=== PATIENT | male | born 1940 | race Caucasian/White ===

== ENCOUNTER → 2016-07-25 | Outpatient (CLI) | payer OTHER ==
[2016-07-25 14:47] LABS: BILIRUBIN,URINE NEGATIVE (NEG); CLARITY,URINE CLEAR (CLEAR); GLUCOSE, URINE (UA) NEGATIVE (NEG); LEUKOCYTE ESTERASE ,URINE NEGATIVE (NEG); NITRATE,URINE NEGATIVE (NEG); OCCULT BLOOD,URINE NEGATIVE (NEG); PH,URINE 7.5 (5.0-8.5); PROTEIN,URINE NEGATIVE (NEG)
[2016-07-25 14:49] LABS: BASOPHILS # (AUTO) 0.03 10*3/UL; BASOPHILS % (AUTO) 0.6 % (0-1); EOSINOPHILS % (AUTO) 0.8 % (0-8); HEMATOCRIT 43.9 % (42.0-52.0); HEMOGLOBIN 15.1 g/dL (14.0-18.0); IMM GRAN % (AUTO) 0.2 % (0-5); IMM GRAN# (AUTO) 0.01 10*3/UL; LYMPHOCYTES # (AUTO) 1.35 10*3/uL; LYMPHOCYTES % (AUTO) 25.4 % (10-50); MEAN CORPUSCULAR HEMOGLOBIN 31.9 PG (27-31); MEAN CORPUSCULAR HGB CONC 34.4 g/dL (33-37); MEAN PLATELET VOLUME 8.5 FL (7.4-12.2); MONOCYTES # (AUTO) 0.61 10*3/UL (0.3-0.8); MONOCYTES % (AUTO) 11.5 % (5-15); NEUTROPHILS # (AUTO) 3.28 10*3/UL; NEUTROPHILS % (AUTO) 61.5 % (50-80); RDW COEFFICIENT OF VARIATION 13.6 % (11.5-14.5); RED BLOOD COUNT 4.73 10^6/uL (4.70-6.10); WHITE BLOOD COUNT 5.32 10^3/uL (4.8-10.8)
[2016-07-25 14:50] LABS: PLATELET MORPHOLOGY COMMENT NORMAL MORPHOLOGY (NORM); URINE SAMPLE TYPE CLEAN CATCH URINE
[2016-07-25 14:54] LABS: BILIRUBIN,TOTAL 0.6 mg/dL (0.3-1.2); BUN/CREATININE RATIO 16.25 (6-20); CALCIUM 9.2 mg/dL (8.7-10.7); CREATININE 0.8 mg/dL (0.70-1.50); LDL CHOLESTEROL,CALCULATED 99.6 mg/dL
[2016-07-25 14:59] LABS: RBC,URINE 0-1 /hpf; WBC,URINE 0-1
[2016-07-25 15:29] LABS: ERYTHROCYTE SEDIMENTATION RATE 2 MM/HR (0-15)
== END ==
LOC: MOB LAB 11:49
PROVIDERS: ATTEND Internal Medicine
DX: K59.04 Chronic idiopathic constipation (principal); R12 Heartburn; N40.1 Benign prostatic hyperplasia with lower urinary tract symptoms; R35.1 Nocturia; M19.041 Primary osteoarthritis, right hand; R60.0 Localized edema
CPT/HCPCS: 36415; 80053; 80061; 81001; 84443; 85025; 85652

== ENCOUNTER 2017-03-17 09:27 | Inpatient (IN) ==
[2017-03-17] MEDS ORDERED: NORMAL SALINE 10 ML SYRINGE FLUSH IVP PRN ×3 (09:31→17:42)
[2017-03-17] MEDS ORDERED: Lactated Ringers 1,000 ML PRIMARY IV SCH (09:45)
[2017-03-17] MEDS ORDERED: ceFAZolin Inj 2gm (Premix) 2 GM/50 ML BAG IV SCH ×2 (09:45→17:42)
--- NOTE | 2017-03-17 11:13 | PDOC ---
HPI - History of Present Illness History of Present Illness: Is a very nice 76-year-old gentleman who was a direct admit admit from [facility] by Dr. Vasquez hospitalist service was asked to admit. Apparently the patient was mowing the lawn at [facility] and I get out of his truck to hookup the trailer's pulled the cord slipped backwards and fell sustaining a hip fracture right minimally displaced right femoral neck fracture. Which Dr. Vasquez is going to be bringing to the ER this afternoon. Patient is able to stand and is in no pain surprisingly. Denies chest pain nausea vomiting Past Medical History Medical History: Patient has a history of seizure disorder on Dilantin he has no history of coronary artery disease he states Tobacco Use: Never Smoker In the Past 12 Months, Have Used or Abuse Any of the Following Substance: None Alcohol Use: None Medication / Allergies Home Medications: Home Medications Medication Instructions Recorded Confirmed Type Phenytoin Sodium Extended 2 tab-cap PO BID #360 tab-cap 07/25/16 Rx tramadol 50 mg tablet 50 mg PO Q6H PRN tab 03/17/17 03/17/17 History Allergies/Adverse Reactions: Allergies 3 Allergy/AdvReac Type Severity Reaction Status Date / Time No Known Allergies Allergy Unverified 07/25/16 09:39 Review of Systems - Review of Systems All Systems: Reviewed & No Additional Complaints Except as Stated - Eye Exam Eye Exam: DENIES: Negative System Review, Acuity Good, Acuity Fair, Acuity Poor , Glasses/Contacts, Vision Loss, Blurring, Redness, Diplopia, Catarats, Other, See HPI - Respiratory Respiratory: DENIES: Negative System Review, Cough, Sputum, Dyspnea At Rest, Dyspnea with Exertion, Pleuritic Pain, Hemoptysis, Wheezing, Other, See HPI - Cardiovascular Cardiovascular: DENIES: Negative System Review, Chest Pain, Edema, Syncope, Palpitations, Orthopnea, Paroxysmal Nocturnal Dyspnea, Other, See HPI - Gastrointestinal Gastrointestinal / Abdominal: DENIES: Negative System Review, Nausea, Vomiting, Diarrhea, Constipation, Abdominal Pain, Bloody Stool, Poor Appetite, Heartburn, Regurgitation, Bloating, Lactose Intolerance, Melena, Bright Red Blood per Rectum, Other, See HPI - Genitourinary Genitourinary: DENIES: Negative System Review, Pain, Burning, Hematuria, Incontinence, Urgency, Hesitant Stream, Decreased Stream, Nocutria, Discharge, Sexual Dysfunction, Other, See HPI Exam - Vitals Vital Signs: Vital Signs Temperature 98.7 F Temperature Source Oral Pulse Rate [Pulse Oximeter] 69 Respiratory Rate 20 Blood Pressure [Right Arm] 130/64 Pulse Ox 98 Oxygen Delivery Method Room Air Height 5 ft 9 in Weight 142 lb 12.8 oz - General General Appearance: No Acute Distress, Cooperative - Head Head Exam: Normal Inspection, Normocephalic, Atraumatic - Eye Eye Exam: POSITIVE: Normal Appearance, PERRL, EOMI - Respiratory Respiratory Exam: POSITIVE: Clear to Auscultation - Bilaterally, Breathing Non Labored, Normal To Percussion - Cardiovascular Cardiovascular Exam: POSITIVE: RRR, No Murmur, No Clicks, No Gallops - GI/Abdominal GI/Abdominal Exam: POSITIVE: Normal Bowel Sounds, Non Tender, Non Distended, Soft - Extremities Extremities Exam: POSITIVE: No Clubbing Present, No Edema Present, No Cyanosis Present - Neurological Neurological Exam: POSITIVE: Alert, Oriented x 3, CN II-XII Intact, No Facial Droop Assessment and Plan - Patient Problems (1) S/P right hip fracture Current Visit: Yes Status: Acute Comment: Dr. Vasquez will be taking the patient to our this afternoon Code(s): Z87.81 - Personal history of (healed) traumatic fracture (2) Seizure disorder Current Visit: Yes Status: Acute Comment: Continue usual home meds Code(s): G40.909 - Epilepsy, unspecified, not intractable, without status epilepticus
[2017-03-17 13:39] LABS: BASOPHILS # (AUTO) 0.03 10*3/UL; BASOPHILS % (AUTO) 0.4 % (0-1); EOSINOPHILS # (AUTO) 0.33 10*3/UL; EOSINOPHILS % (AUTO) 4.3 % (0-8); Hematocrit [HCT] 45.3 % (42.0-52.0); Hemoglobin [HGB] 15.8 g/dL (14.0-18.0); LYMPHOCYTES # (AUTO) 1.22 10*3/uL; MEAN CORPUSCULAR HEMOGLOBIN 32.6 PG (27-31); MEAN CORPUSCULAR HGB CONC 34.9 g/dL (33-37); MEAN CORPUSCULAR VOLUME 93.4 FL (80-90); MEAN PLATELET VOLUME 8.1 FL (7.4-12.2); MONOCYTES # (AUTO) 0.81 10*3/UL (0.3-0.8); MONOCYTES % (AUTO) 10.7 % (5-15); NEUTROPHILS # (AUTO) 5.19 10*3/UL; NEUTROPHILS % (AUTO) 68.2 % (50-80); RED BLOOD COUNT 4.85 10^6/uL (4.70-6.10)
[2017-03-17 13:42] LABS: PLATELET MORPHOLOGY COMMENT NORMAL MORPHOLOGY (NORM); RBC MORPHOLOGY COMMENT NORMAL MORPHOLOGY (NORM); WBC MORPHOLOGY COMMENT NORMAL MORPHOLOGY (NORM)
[2017-03-17 13:52] LABS: BLOOD UREA NITROGEN 22 mg/dL (7-22); SERUM ALBUMIN 4.3 g/dL (3.5-4.8)
[2017-03-17] MEDS ORDERED: BACITRACIN 50,000 UNIT VIAL IRRIG ONE (14:38)
[2017-03-17] MEDS ORDERED: Sodium Chloride 0.9% vial 20 ML ONE (14:38)
[2017-03-17] MEDS ORDERED: ceFAZolin Inj 2gm (Premix) 2 GM/50 ML BAG IV ONE (14:40)
[2017-03-17] MEDS ORDERED: BUPivacaine Liposome/PF (Exparel) Inj 20ml vial INFIL ONE (14:49)
[2017-03-17] MEDS ORDERED: PROPOFOL IV ONE (14:49)
[2017-03-17] MEDS ORDERED: Sodium Chloride 0.9% vial 10 ML ONE (14:49)
[2017-03-17] MEDS ORDERED: Bacteriostatic NaCl Inj 30ml Vial ONE (14:49)
[2017-03-17] MEDS ORDERED: MIDAZOLAM 5 MG/1 ML ONE (14:53)
[2017-03-17] MEDS ORDERED: fentaNYL Inj 100 MCG/2 ML VIAL ONE (14:53)
--- NOTE | 2017-03-17 15:46 | CRNA.PROCE ---
Central Neuraxis Block [facility] - - Safety Measures: Time Out Taken - - Type of Block: Subarachnoid Reason for Block: Surgical Moniters Used During Block: EKG, SPO2, NIBP Sedation Used - Enter Amount Used in Comment Field: Midazolam (mg): Yes (2mg), Fentanyl (mcg): Yes (50mcg) Skin Prep Used: ChloroPrep Draped: No Skin Infiltration - Enter Amount Used in Comment Field: 1% Xylocaine (mL): Yes ( skin wheal) Spinal Needle Used: 22 Melisa 80 mm Local Anesthetic - Enter Amount Used in Comment Field: 0.75 % Bupivacaine with Dextrose (ml): Yes (15mg) Additive Used - Enter Amount Used in Comment Field: Epinephrine 1:1000 Needle Rinse (mL): Yes (barrel wash) Anesthesia Time - Other Weight: 64.773 kg Height: 5 ft 9 in Body Mass Index (BMI): 21.0
[2017-03-17] MEDS ORDERED: HYDROmorphone 2 MG/1 ML IVP PRN ×2 (15:51→17:42)
[2017-03-17] MEDS ORDERED: ONDANSETRON 4 MG/2 ML VIAL IVP PRN ×2 (15:51→17:42)
[2017-03-17] MEDS ORDERED: fentaNYL Inj 100 MCG/2 ML VIAL IVP PRN (15:51)
[2017-03-17] MEDS ORDERED: LIDOCAINE HCL 2 % 10 ML JELLY URO-JECT TOPICAL ONE (16:54)
--- NOTE | 2017-03-17 17:26 | CRNA.PROGR ---
Anesthesia Time - - Start date: 03/17/17 End date: 03/17/17 - Procedure/Recovery Time Anesthesia : Time In: 15:10 Anesthesia : Time Out: 17:21 Anesthesia : Total Time: 131 - Total Anesthesia Time Total Anesthesia Time (minutes): 131 - Other Weight: 64.773 kg Height: 5 ft 9 in Body Mass Index (BMI): 21.0 Physical Status: P2 Anesthesia Type: Spinal Block (with sedation)
--- NOTE | 2017-03-17 17:35 | ORTHO.OP ---
- - -: See Dictated Operative Report (Patient had an office visit and was coded 93679 with decision to operate and CPT code 67569)
[2017-03-17] MEDS ORDERED: HYDROcodone-APAP 7.5 MG-325 MG TABLET PO PRN (17:42)
[2017-03-17] MEDS: Lactated Ringers 1,000 ML PRIMARY IV SCH (18:30)
[2017-03-17] MEDS: PHENYTOIN PO SCH (20:00)
[2017-03-17] MEDS: DOCUSATE 100 MG CAPSULE PO SCH (21:21)
[2017-03-18 05:10] LABS: BASOPHILS # (AUTO) 0.03 10*3/UL; BASOPHILS % (AUTO) 0.3 % (0-1); EOSINOPHILS # (AUTO) 0.18 10*3/UL; EOSINOPHILS % (AUTO) 1.7 % (0-8); LYMPHOCYTES # (AUTO) 1.21 10*3/uL; MEAN CORPUSCULAR HEMOGLOBIN 31.7 PG (27-31); MEAN CORPUSCULAR HGB CONC 34.1 g/dL (33-37); MEAN CORPUSCULAR VOLUME 92.8 FL (80-90); MEAN PLATELET VOLUME 8.6 FL (7.4-12.2); MONOCYTES # (AUTO) 1.31 10*3/UL (0.3-0.8); MONOCYTES % (AUTO) 12.3 % (5-15); NEUTROPHILS # (AUTO) 7.87 10*3/UL; RED BLOOD COUNT 4.42 10^6/uL (4.70-6.10)
[2017-03-18 05:18] LABS: BLOOD UREA NITROGEN 16 mg/dL (7-22); BUN/CREATININE RATIO 22.85 (6-20)
[2017-03-18 05:31] LABS: PLATELET MORPHOLOGY COMMENT NORMAL MORPHOLOGY (NORM); RBC MORPHOLOGY COMMENT NORMAL MORPHOLOGY (NORM); WBC MORPHOLOGY COMMENT NORMAL MORPHOLOGY (NORM)
[2017-03-18] MEDS: Lactated Ringers 1,000 ML PRIMARY IV SCH ×2 (05:44→17:23)
[2017-03-18] MEDS: Rivaroxaban Tab 10 MG TAB PO SCH (09:04)
[2017-03-18] MEDS: PHENYTOIN PO SCH ×2 (09:04→20:44)
[2017-03-18] MEDS: DOCUSATE 100 MG CAPSULE PO SCH ×2 (09:05→20:44)
--- NOTE | 2017-03-18 11:04 | CRNA.PROGR ---
Anesthesia Note - Progress Notes Anesthesia Progress Note: Post OP Anesthesia Note Pt is sitting up in bed AAO, has just returned from PT, he has been up several tomes to walk around the 3rd floor hallways. He denies any pain, and states that the SAB has completel worn off. He has been tolerating a regular diet and is able to get up to the restroom. Current VS are stable. Vital Signs - Last Taken Temperature 98.5 F 03/18/17 09:00 Pulse Rate 81 03/18/17 09:00 Respiratory Rate 18 03/18/17 10:09 Blood Pressure 129/73 03/18/17 09:00 Pulse Ox 94 03/18/17 09:00
--- NOTE | 2017-03-18 11:58 | ORTHO.PROG ---
Last Taken Vital Signs: Vital Signs - Last Taken Temperature 98.9 F 03/18/17 11:54 Pulse Rate 71 03/18/17 11:54 Respiratory Rate 18 03/18/17 11:54 Blood Pressure 111/58 03/18/17 11:54 Pulse Ox 98 03/18/17 11:54 Subjective: Patient notes his pain is very well controlled at the current time Objective: Motor and sensory exam good he has good motion of the hip knee ankles and toes. His dressing Silverlon in place clean and dry no drainage or evidence of active issues. Laboratory Results 03/17/17 03/17/17 03/18/17 Range/Units 09:33 13:30 04:15 WBC 7.60 10.63 (4.8-10.8) 10^3/uL RBC 4.85 4.42 L (4.70-6.10) 10^6/uL Hgb 15.8 14.0 (14.0-18.0) g/dL Hct 45.3 41.0 L (42.0-52.0) % MCV 93.4 H 92.8 H (80-90) FL MCH 32.6 H 31.7 H (27-31) PG MCHC 34.9 34.1 (33-37) g/dL RDW Std Deviation 47.5 47.0 (39-50) fL RDW Coeff of Jade 14.2 14.0 (11.5-14.5) % Plt Count 211 211 (140-350) 10*3/uL MPV 8.1 8.6 (7.4-12.2) FL Immature Gran % (Auto) 0.3 0.3 (0-5) % Neut % (Auto) 68.2 74.0 (50-80) % Lymph % (Auto) 16.1 11.4 (10-50) % [place] % (Auto) 10.7 12.3 (5-15) % Eos % (Auto) 4.3 1.7 (0-8) % Baso % (Auto) 0.4 0.3 (0-1) % Immature Gran # (Auto) 0.02 0.03 10*3/UL Neut # (Auto) 5.19 7.87 10*3/UL Lymph # (Auto) 1.22 1.21 10*3/uL [place] # (Auto) 0.81 H 1.31 H (0.3-0.8) 10*3/UL Eos # (Auto) 0.33 0.18 10*3/UL Baso # (Auto) 0.03 0.03 10*3/UL WBC Morphology Comment Normal morphology Normal morphology (NORM) Plt Morphology Comment Normal morphology Normal morphology (NORM) RBC Morph Comment Normal morphology Normal morphology (NORM) Sodium 139 (135-145) meq/L Potassium 4.4 (3.8-5.2) meq/L Chloride 102 (98-112) meq/L Carbon Dioxide 26 (23-33) meq/L Anion Gap 11 (5-20) BUN 22 (7-22) mg/dL Creatinine 0.8 (0.70-1.50) mg/dL BUN/Creatinine Ratio 27.50 H (6-20) Glucose 96 (78-110) mg/dL Calculated Osmolality 290.0 (267-292) mOsm/kg Calcium 9.2 (8.7-10.7) mg/dL Total Bilirubin 1.0 (0.3-1.2) mg/dL AST 24 (21-57) IU/L ALT 29 (21-72) IU/L Alkaline Phosphatase 89 (38-126) IU/L Total Protein 7.6 (6.1-8.0) g/dL Albumin 4.3 (3.5-4.8) g/dL Globulin 3.2 (2.50-4.10) g/dL Albumin/Globulin Ratio 1.30 (1.3-2.0) mg/g 03/18/17 Range/Units 04:15 WBC (4.8-10.8) 10^3/uL RBC (4.70-6.10) 10^6/uL Hgb (14.0-18.0) g/dL Hct (42.0-52.0) % MCV (80-90) FL MCH (27-31) PG MCHC (33-37) g/dL RDW Std Deviation (39-50) fL RDW Coeff of Jade (11.5-14.5) % Plt Count (140-350) 10*3/uL MPV (7.4-12.2) FL Immature Gran % (Auto) (0-5) % Neut % (Auto) (50-80) % Lymph % (Auto) (10-50) % [place] % (Auto) (5-15) % Eos % (Auto) (0-8) % Baso % (Auto) (0-1) % Immature Gran # (Auto) 10*3/UL Neut # (Auto) 10*3/UL Lymph # (Auto) 10*3/uL [place] # (Auto) (0.3-0.8) 10*3/UL Eos # (Auto) 10*3/UL Baso # (Auto) 10*3/UL WBC Morphology Comment (NORM) Plt Morphology Comment (NORM) RBC Morph Comment (NORM) Sodium 137 (135-145) meq/L Potassium 3.9 (3.8-5.2) meq/L Chloride 103 (98-112) meq/L Carbon Dioxide 24 (23-33) meq/L Anion Gap 10 (5-20) BUN 16 (7-22) mg/dL Creatinine 0.7 (0.70-1.50) mg/dL BUN/Creatinine Ratio 22.85 H (6-20) Glucose 110 (78-110) mg/dL Calculated Osmolality 285.0 (267-292) mOsm/kg Calcium 8.6 L (8.7-10.7) mg/dL Total Bilirubin (0.3-1.2) mg/dL AST (21-57) IU/L ALT (21-72) IU/L Alkaline Phosphatase (38-126) IU/L Total Protein (6.1-8.0) g/dL Albumin (3.5-4.8) g/dL Globulin (2.50-4.10) g/dL Albumin/Globulin Ratio (1.3-2.0) mg/g Vital Signs (24 hrs) Temp Pulse Pulse Pulse Resp BP BP 03/18/17 11:54 98.9 F 71 18 111/58 03/18/17 10:09 18 03/18/17 09:00 98.5 F 81 18 129/73 03/18/17 07:00 15 03/18/17 04:12 98.8 F 71 20 125/71 03/18/17 00:43 99.4 F 60 20 122/70 03/17/17 22:56 99.3 F 80 18 133/70 03/17/17 21:00 99.6 F 77 20 137/72 03/17/17 19:39 99.6 F 74 20 135/72 03/17/17 19:15 98.3 F 70 16 148/80 03/17/17 19:00 76 74 20 03/17/17 18:31 98.3 F 76 18 146/75 03/17/17 18:15 98.4 F 93 18 144/82 03/17/17 18:14 99.8 F H 64 17 142/94 03/17/17 18:00 98.1 F 72 20 120/88 03/17/17 17:45 98 F 74 20 117/93 03/17/17 17:33 63 16 136/80 03/17/17 17:28 63 16 119/91 03/17/17 17:22 60 16 145/85 03/17/17 17:17 99.5 F 61 12 143/71 03/17/17 14:20 98.5 F 67 20 143/85 03/17/17 13:23 97.9 F 63 18 139/71 Pulse Ox 03/18/17 11:54 98 03/18/17 10:09 03/18/17 09:00 94 03/18/17 07:00 03/18/17 04:12 92 03/18/17 00:43 92 03/17/17 22:56 93 03/17/17 21:00 93 03/17/17 19:39 95 03/17/17 19:15 95 03/17/17 19:00 03/17/17 18:31 93 03/17/17 18:15 93 03/17/17 18:14 94 03/17/17 18:00 94 03/17/17 17:45 94 03/17/17 17:33 63 03/17/17 17:28 92 03/17/17 17:22 92 03/17/17 17:17 90 03/17/17 14:20 97 03/17/17 13:23 97 Intake and Output - 8hr Totals Only 03/17/17 03/17/17 03/18/17 03/18/17 13:59 21:59 05:59 13:59 Intake Total 1700 / 1700 1306 / 1306 200 / 200 Output Total 950 / 950 750 / 750 150 / 150 Balance 750 / 750 556 / 556 50 / 50 Assessment: Right femoral neck fracture with percutaneous stabilization with 3 cannulated screws Plan: Physical therapy and occupational therapy, 5-10 pounds partial weightbearing on the right with crutches or walker based on patient's comfort and coordination Pain control. Possible discharge tomorrow depending on how patient fairs with physical therapy and occupational therapy
[2017-03-18] MEDS ORDERED: MAGNESIUM 400 MG/5 ML - 30 ML (MILK OF MAGNESIA) PO ONE (15:13)
[2017-03-18] MEDS ORDERED: Fleet Enema w/Mineral Oil 133ml RECTAL ONE (15:14)
--- NOTE | 2017-03-18 15:18 | PDOC(PROG) ---
Date and Time of Service: 03/18/2017, 1516 Interval History: No chest pain, shortness breath, nausea or vomiting. Patient states that he's been on phenytoin for over 30 years after syncopal type episode at work. He was diagnosed as a seizure. He's not had any recurrent events since that time. No other major medical issues. He does state that he feels somewhat constipated right now. Pain in his hip is absent. Objective : Data - Labs CBC and BMP: 03/18/17 04:15 03/18/17 04:15 Objective : Exam - General General Appearance: No Acute Distress, Cooperative Additional General Exam Details: Vital Signs (24 hrs) Temp Pulse Pulse Pulse Resp BP BP 03/18/17 11:54 98.9 F 71 18 111/58 03/18/17 10:09 18 03/18/17 09:00 98.5 F 81 18 129/73 03/18/17 07:00 15 03/18/17 04:12 98.8 F 71 20 125/71 03/18/17 00:43 99.4 F 60 20 122/70 03/17/17 22:56 99.3 F 80 18 133/70 03/17/17 21:00 99.6 F 77 20 137/72 03/17/17 19:39 99.6 F 74 20 135/72 03/17/17 19:15 98.3 F 70 16 148/80 03/17/17 19:00 76 74 20 03/17/17 18:31 98.3 F 76 18 146/75 03/17/17 18:15 98.4 F 93 18 144/82 03/17/17 18:14 99.8 F H 64 17 142/94 03/17/17 18:00 98.1 F 72 20 120/88 03/17/17 17:45 98 F 74 20 117/93 03/17/17 17:33 63 16 136/80 03/17/17 17:28 63 16 119/91 03/17/17 17:22 60 16 145/85 03/17/17 17:17 99.5 F 61 12 143/71 Pulse Ox 03/18/17 11:54 98 03/18/17 10:09 03/18/17 09:00 94 03/18/17 07:00 03/18/17 04:12 92 03/18/17 00:43 92 03/17/17 22:56 93 03/17/17 21:00 93 03/17/17 19:39 95 03/17/17 19:15 95 03/17/17 19:00 03/17/17 18:31 93 03/17/17 18:15 93 03/17/17 18:14 94 03/17/17 18:00 94 03/17/17 17:45 94 03/17/17 17:33 63 03/17/17 17:28 92 03/17/17 17:22 92 03/17/17 17:17 90 - ENT ENT Exam: Mucous Membranes Moist - Respiratory Respiratory Exam: Clear to Auscultation - Bilaterally, Breathing Non Labored - Cardiovascular Cardiovascular Exam: RRR, No Murmur, No Clicks, No Gallops, No Rubs, No JVD - GI/Abdominal GI/Abdominal Exam: Normal Bowel Sounds, Non Tender, Non Distended, Soft - Extremities Extremities Exam: No Clubbing Present, No Edema Present, No Cyanosis Present Additional Extremities Exam Details: Incision on hip is clean, dry, intact and dressed. - Neurological Neurological Exam: Alert, Oriented x 3, No Facial Droop, Speech Intact / Clear Assessment and Plan - Patient Problems (1) Seizure disorder Current Visit: Yes Status: Acute Code(s): G40.909 - Epilepsy, unspecified, not intractable, without status epilepticus (2) S/P right hip fracture Current Visit: Yes Status: Acute Code(s): Z87.81 - Personal history of ( healed) traumatic fracture - Assessment / Plan Additional Assessment/Plan Details: At this time seizure disorder is well controlled with phenytoin, maintain dose and do not change. for constipation, add milk of magnesia and try an enema. PT and OT. DVT prophylaxis, patient is on Xarelto, and recommend 28-35 days postoperatively and then discontinue.
[2017-03-19 01:39] VITALS: RESP 20
[2017-03-19 05:21] LABS: BASOPHILS # (AUTO) 0.02 10*3/UL; BASOPHILS % (AUTO) 0.2 % (0-1); EOSINOPHILS # (AUTO) 0.44 10*3/UL; EOSINOPHILS % (AUTO) 4.9 % (0-8); Hematocrit [HCT] 39.8 % (42.0-52.0); Hemoglobin [HGB] 13.7 g/dL (14.0-18.0); LYMPHOCYTES # (AUTO) 1.22 10*3/uL; MEAN CORPUSCULAR HEMOGLOBIN 31.9 PG (27-31); MEAN CORPUSCULAR HGB CONC 34.4 g/dL (33-37); MEAN CORPUSCULAR VOLUME 92.8 FL (80-90); MEAN PLATELET VOLUME 8.9 FL (7.4-12.2); MONOCYTES # (AUTO) 1.07 10*3/UL (0.3-0.8); MONOCYTES % (AUTO) 11.8 % (5-15); NEUTROPHILS # (AUTO) 6.27 10*3/UL; NEUTROPHILS % (AUTO) 69.4 % (50-80); RED BLOOD COUNT 4.29 10^6/uL (4.70-6.10)
[2017-03-19 05:24] LABS: PLATELET MORPHOLOGY COMMENT NORMAL MORPHOLOGY (NORM); RBC MORPHOLOGY COMMENT NORMAL MORPHOLOGY (NORM); WBC MORPHOLOGY COMMENT NORMAL MORPHOLOGY (NORM)
[2017-03-19 05:41] LABS: BLOOD UREA NITROGEN 14 mg/dL (7-22)
[2017-03-19 09:26] VITALS: O2SAT 95
--- NOTE | 2017-03-19 09:30 | ORTHO.PROG ---
Last Taken Vital Signs: Vital Signs - Last Taken Temperature 98.1 F 03/19/17 09:00 Pulse Rate 83 03/19/17 09:00 Respiratory Rate 20 03/19/17 09:00 Blood Pressure 133/71 03/19/17 09:00 Pulse Ox 95 03/19/17 09:00 Subjective: Patient doing well taking no pain medications Objective: Right Silverlon dressing in place incision clean and dry no evidence of infection., Popliteal, adductor hiatus or thigh pain. No distal swelling or edema motor and sensory exam is nonfocal with good pulses brisk refill. Laboratory Results 03/19/17 03/19/17 Range/Units 04:10 04:10 WBC 9.04 (4.8-10.8) 10^3/uL RBC 4.29 L (4.70-6.10) 10^6/uL Hgb 13.7 L (14.0-18.0) g/dL Hct 39.8 L (42.0-52.0) % MCV 92.8 H (80-90) FL MCH 31.9 H (27-31) PG MCHC 34.4 (33-37) g/dL RDW Std Deviation 46.5 (39-50) fL RDW Coeff of Jade 13.9 (11.5-14.5) % Plt Count 209 (140-350) 10*3/uL MPV 8.9 (7.4-12.2) FL Immature Gran % (Auto) 0.2 (0-5) % Neut % (Auto) 69.4 (50-80) % Lymph % (Auto) 13.5 (10-50) % [place] % (Auto) 11.8 (5-15) % Eos % (Auto) 4.9 (0-8) % Baso % (Auto) 0.2 (0-1) % Immature Gran # (Auto) 0.02 10*3/UL Neut # (Auto) 6.27 10*3/UL Lymph # (Auto) 1.22 10*3/uL [place] # (Auto) 1.07 H (0.3-0.8) 10*3/UL Eos # (Auto) 0.44 10*3/UL Baso # (Auto) 0.02 10*3/UL WBC Morphology Comment Normal morphology (NORM) Plt Morphology Comment Normal morphology (NORM) RBC Morph Comment Normal morphology (NORM) Sodium 139 (135-145) meq/L Potassium 4.0 (3.8-5.2) meq/L Chloride 105 (98-112) meq/L Carbon Dioxide 25 (23-33) meq/L Anion Gap 9 (5-20) BUN 14 (7-22) mg/dL Creatinine 0.7 (0.70-1.50) mg/dL BUN/Creatinine Ratio 20.00 (6-20) Glucose 109 (78-110) mg/dL Calculated Osmolality 289.0 (267-292) mOsm/kg Calcium 8.5 L (8.7-10.7) mg/dL Vital Signs (24 hrs) Temp Pulse Resp BP Pulse Ox 03/19/17 09:00 98.1 F 83 20 133/71 95 03/19/17 04:25 98.1 F 70 20 135/79 94 03/19/17 01:00 98.4 F 75 20 130/77 93 03/18/17 20:28 98.7 F 73 18 151/76 93 03/18/17 16:59 98.3 F 72 18 138/70 92 03/18/17 11:54 98.9 F 71 18 111/58 98 03/18/17 10:09 18 Assessment: Right femoral neck fracture with percutaneous pinning doing well Plan: Patient will continue with physical therapy and occupational therapy. Possible discharge home today if cleared by therapy. If sent home he will continue on his Xarelto 10 mg by mouth daily
[2017-03-19] MEDS: DOCUSATE 100 MG CAPSULE PO SCH (09:36)
[2017-03-19] MEDS: Rivaroxaban Tab 10 MG TAB PO SCH (09:36)
[2017-03-19] MEDS: PHENYTOIN PO SCH (09:39)
--- NOTE | 2017-03-19 13:44 | ORTHO.DC ---
Discharge Summary Admit Date: 03/17/17 Discharge Date: 03/19/17 Admitting Diagnosis: right hip fracture Discharge Diagnosis: Right hip fracture Primary Surgery and Date: 03/17/2017 Hospital Course: Patient sustained a hip fracture 2 days prior after falling backwards landing on the right hip. Patient underwent closed reduction and percutaneous screw stabilization of the fracture on March 17 progressed well with therapy and is ready for discharge pain is well-controlled. Motor and sensory exam is remaining nonfocal. Incision has been clean and dry no evidence of infection no swelling, popliteal adductor hiatus or thigh pain. Laboratory Results 03/19/17 03/19/17 Range/Units 04:10 04:10 WBC 9.04 (4.8-10.8) 10^3/uL RBC 4.29 L (4.70-6.10) 10^6/uL Hgb 13.7 L (14.0-18.0) g/dL Hct 39.8 L (42.0-52.0) % MCV 92.8 H (80-90) FL MCH 31.9 H (27-31) PG MCHC 34.4 (33-37) g/dL RDW Std Deviation 46.5 (39-50) fL RDW Coeff of Jade 13.9 (11.5-14.5) % Plt Count 209 (140-350) 10*3/uL MPV 8.9 (7.4-12.2) FL Immature Gran % (Auto) 0.2 (0-5) % Neut % (Auto) 69.4 (50-80) % Lymph % (Auto) 13.5 (10-50) % [place] % (Auto) 11.8 (5-15) % Eos % (Auto) 4.9 (0-8) % Baso % (Auto) 0.2 (0-1) % Immature Gran # (Auto) 0.02 10*3/UL Neut # (Auto) 6.27 10*3/UL Lymph # (Auto) 1.22 10*3/uL [place] # (Auto) 1.07 H (0.3-0.8) 10*3/UL Eos # (Auto) 0.44 10*3/UL Baso # (Auto) 0.02 10*3/UL WBC Morphology Comment Normal morphology (NORM) Plt Morphology Comment Normal morphology (NORM) RBC Morph Comment Normal morphology (NORM) Sodium 139 (135-145) meq/L Potassium 4.0 (3.8-5.2) meq/L Chloride 105 (98-112) meq/L Carbon Dioxide 25 (23-33) meq/L Anion Gap 9 (5-20) BUN 14 (7-22) mg/dL Creatinine 0.7 (0.70-1.50) mg/dL BUN/Creatinine Ratio 20.00 (6-20) Glucose 109 (78-110) mg/dL Calculated Osmolality 289.0 (267-292) mOsm/kg Calcium 8.5 L (8.7-10.7) mg/dL Vital Signs (24 hrs) Temp Pulse Resp BP Pulse Ox 03/19/17 09:00 98.1 F 83 20 133/71 95 03/19/17 04:25 98.1 F 70 20 135/79 94 03/19/17 01:00 98.4 F 75 20 130/77 93 03/18/17 20:28 98.7 F 73 18 151/76 93 03/18/17 16:59 98.3 F 72 18 138/70 92 Discharge Medications: Discharge Medications Phenytoin Sodium Extended 2 tab-cap PO BID #360 tab-cap 07/25/16 [Rx] tramadol 50 mg tablet 50 mg PO Q6H PRN tab 03/17/17 [History] Follow-Up: JUSTINA NETTLES [Primary Care Provider] - As Needed CHAR ENRIQUE [STAFF PHYSICIAN] - 03/30/17 (Call for appointment time in [place]) Discharge Instructions Provided to Patient / Family: ORIF of Hip Fracture (DC) Exam - - Exam: Patient with Silverlon dressing in place no evidence of infection good range of motion [id number] toe motor and sensory exam is nonfocal with good pulses brisk refill. H EENT exam is benign no JVD chest clear to auscultation heart regular rate abdomen positive bowel sounds soft nontender - Vitals Vital Signs: Vital Signs Temperature 98.1 F Temperature Source Temporal Artery Scan Pulse Rate [Pulse Oximeter] 83 Pulse Rate [Apical] 76 Pulse Rate 64 Respiratory Rate 20 Blood Pressure [Right Arm] 133/71 Blood Pressure 142/94 Pulse Ox 95 Oxygen Delivery Method Room Air Height 5 ft 9 in Weight 66.497 kg Patient Problems - Patient Problem List (1) S/P right hip fracture Current Visit: Yes Status: Acute Code(s): Z87.81 - Personal history of ( healed) traumatic fracture Category: Medical
[2017-03-19 13:56] VITALS: BP 116/54; TEMP 98.3
--- NOTE | 2017-03-19 14:55 | DCSUMMARY ---
Hospitalization Summary Admit Date: 03/17/17 Discharge Date: 03/19/17 Primary Diagnosis:: status post right hip fracture with ORIF Secondary Diagnosis:: Seizure disorder, controlled, chronic Hospital Course: This very pleasant 76-year-old male who had a fall and was admitted here as a transfer with a hip fracture. Dr. Vasquez did the repair. We admitted the patient. He had a chronic seizure disorder. Seizure disorder was well controlled and we made no dose changes to his antiepileptic drugs. Patient did very well with therapy and was deemed stable for discharge on 03/19/2017. He' ll follow up with Dr. Vasquez in his primary care provider I suggested in one week. Today, no complaints of chest pain, shortness breath, nausea or vomiting and his hip pain is well controlled. He does have Xarelto for DVT prophylaxis. We will note that I greatly proceed Dr. Vasquez's assistance in helping manage this patient's medical and surgical issues. Assessment and Plan: 1. As per discharge assessments noted 2. Disposition: Patient is discharged home 3. Condition on discharge, stable and improved. 4. Diet: regular diet 5. Activities: As per orthopedics and physical therapy 6. Follow-Up: 1. See Dr. Vasquez in one week 2. 7. Medications at the Time of Discharge: Home Medications Medication Instructions Recorded Confirmed Type Phenytoin Sodium Extended 2 tab-cap PO BID #360 tab-cap 07/25/16 Rx HYDROcodone/APAP 7.5/325 Tab 1 - 2 tab PO Q4H PRN #30 tab 03/19/17 Rx [[place] 7.5/325 Tab] Rivaroxaban [Xarelto] 10 mg PO DAILY #14 tab 03/19/17 Rx 8. Time, care, counseling and coordination of care for this discharge is less than 30 minutes. Exam - Vitals Vital Signs: Vital Signs Temperature 98.3 F Temperature Source Temporal Artery Scan Pulse Rate [Pulse Oximeter] 73 Pulse Rate [Apical] 76 Pulse Rate 64 Respiratory Rate 20 Blood Pressure [Right Arm] 116/54 Blood Pressure 142/94 Pulse Ox 95 Oxygen Delivery Method Room Air Height 5 ft 9 in Weight 146 lb 9.6 oz - General General Appearance: No Acute Distress, Cooperative - Head Head Exam: Normal Inspection, Normocephalic, Atraumatic - Eye Eye Exam: POSITIVE: No Scleral Icterus - ENT ENT Exam: POSITIVE: Mucous Membranes Moist - Respiratory Respiratory Exam: POSITIVE: Clear to Auscultation - Bilaterally, Breathing Non Labored - Cardiovascular Cardiovascular Exam: POSITIVE: RRR, No Murmur, No Clicks, No Gallops, No Rubs, No JVD - GI/Abdominal GI/Abdominal Exam: POSITIVE: Normal Bowel Sounds, Non Tender, Non Distended, Soft - Extremities Extremities Exam: POSITIVE: No Clubbing Present, No Edema Present, No Cyanosis Present Additional Extremities Exam Details: no calf tenderness - Neurological Neurological Exam: POSITIVE: Alert, Oriented x 3, No Facial Droop, Speech Intact / Clear - Psychiatric Psychiatric Exam: POSITIVE: Normal Affect, Normal Mood Data Perinent Studies: Laboratory Results 03/17/17 03/17/17 03/18/17 Range/Units 09:33 13:30 04:15 WBC 7.60 10.63 (4.8-10.8) 10^3/uL RBC 4.85 4.42 L (4.70-6.10) 10^6/uL Hgb 15.8 14.0 (14.0-18.0) g/dL Hct 45.3 41.0 L (42.0-52.0) % MCV 93.4 H 92.8 H (80-90) FL MCH 32.6 H 31.7 H (27-31) PG MCHC 34.9 34.1 (33-37) g/dL RDW Std Deviation 47.5 47.0 (39-50) fL RDW Coeff of Jade 14.2 14.0 (11.5-14.5) % Plt Count 211 211 (140-350) 10*3/uL MPV 8.1 8.6 (7.4-12.2) FL Immature Gran % (Auto) 0.3 0.3 (0-5) % Neut % (Auto) 68.2 74.0 (50-80) % Lymph % (Auto) 16.1 11.4 (10-50) % [place] % (Auto) 10.7 12.3 (5-15) % Eos % (Auto) 4.3 1.7 (0-8) % Baso % (Auto) 0.4 0.3 (0-1) % Immature Gran # (Auto) 0.02 0.03 10*3/UL Neut # (Auto) 5.19 7.87 10*3/UL Lymph # (Auto) 1.22 1.21 10*3/uL [place] # (Auto) 0.81 H 1.31 H (0.3-0.8) 10*3/UL Eos # (Auto) 0.33 0.18 10*3/UL Baso # (Auto) 0.03 0.03 10*3/UL WBC Morphology Comment Normal morphology Normal morphology (NORM) Plt Morphology Comment Normal morphology Normal morphology (NORM) RBC Morph Comment Normal morphology Normal morphology (NORM) Sodium 139 (135-145) meq/L Potassium 4.4 (3.8-5.2) meq/L Chloride 102 (98-112) meq/L Carbon Dioxide 26 (23-33) meq/L Anion Gap 11 (5-20) BUN 22 (7-22) mg/dL Creatinine 0.8 (0.70-1.50) mg/dL BUN/Creatinine Ratio 27.50 H (6-20) Glucose 96 (78-110) mg/dL Calculated Osmolality 290.0 (267-292) mOsm/kg Calcium 9.2 (8.7-10.7) mg/dL Total Bilirubin 1.0 (0.3-1.2) mg/dL AST 24 (21-57) IU/L ALT 29 (21-72) IU/L Alkaline Phosphatase 89 (38-126) IU/L Total Protein 7.6 (6.1-8.0) g/dL Albumin 4.3 (3.5-4.8) g/dL Globulin 3.2 (2.50-4.10) g/dL Albumin/Globulin Ratio 1.30 (1.3-2.0) mg/g 03/18/17 03/19/17 03/19/17 Range/Units 04:15 04:10 04:10 WBC 9.04 (4.8-10.8) 10^3/uL RBC 4.29 L (4.70-6.10) 10^6/uL Hgb 13.7 L (14.0-18.0) g/dL Hct 39.8 L (42.0-52.0) % MCV 92.8 H (80-90) FL MCH 31.9 H (27-31) PG MCHC 34.4 (33-37) g/dL RDW Std Deviation 46.5 (39-50) fL RDW Coeff of Jade 13.9 (11.5-14.5) % Plt Count 209 (140-350) 10*3/uL MPV 8.9 (7.4-12.2) FL Immature Gran % (Auto) 0.2 (0-5) % Neut % (Auto) 69.4 (50-80) % Lymph % (Auto) 13.5 (10-50) % [place] % (Auto) 11.8 (5-15) % Eos % (Auto) 4.9 (0-8) % Baso % (Auto) 0.2 (0-1) % Immature Gran # (Auto) 0.02 10*3/UL Neut # (Auto) 6.27 10*3/UL Lymph # (Auto) 1.22 10*3/uL [place] # (Auto) 1.07 H (0.3-0.8) 10*3/UL Eos # (Auto) 0.44 10*3/UL Baso # (Auto) 0.02 10*3/UL WBC Morphology Comment Normal morphology (NORM) Plt Morphology Comment Normal morphology (NORM) RBC Morph Comment Normal morphology (NORM) Sodium 137 139 (135-145) meq/L Potassium 3.9 4.0 (3.8-5.2) meq/L Chloride 103 105 (98-112) meq/L Carbon Dioxide 24 25 (23-33) meq/L Anion Gap 10 9 (5-20) BUN 16 14 (7-22) mg/dL Creatinine 0.7 0.7 (0.70-1.50) mg/dL BUN/Creatinine Ratio 22.85 H 20.00 (6-20) Glucose 110 109 (78-110) mg/dL Calculated Osmolality 285.0 289.0 (267-292) mOsm/kg Calcium 8.6 L 8.5 L (8.7-10.7) mg/dL Total Bilirubin (0.3-1.2) mg/dL AST (21-57) IU/L ALT (21-72) IU/L Alkaline Phosphatase (38-126) IU/L Total Protein (6.1-8.0) g/dL Albumin (3.5-4.8) g/dL Globulin (2.50-4.10) g/dL Albumin/Globulin Ratio (1.3-2.0) mg/g radiographic data: Procedures: see procedural note from Dr. Vasquez. Patient Problems - Patient Problem List (1) Seizure disorder Status: Acute Code(s): G40.909 - Epilepsy, unspecified, not intractable, without status epilepticus Category: Medical (2) S/P right hip fracture Status: Chronic Code(s): Z87.81 - Personal history of (healed) traumatic fracture Category: Medical
--- NOTE | 2017-03-20 07:36 | PT.PROG ---
Progress Note Progress Note: S: Pt. states he is doing very well. states he is ready to go home. O: Treatment consisted of functional activities: ambulating in the hallway approx 150 feet and up and down an entire flight of stairs with use of handrails. He did gilberto his hernia braces prior to ambulating. A: Pt. overall did very well with ambulating with use of crutches as well as stair climbing. He was able to achieve ascending and descending the flight of stairs with no difficulty. He also observes TTWB. P: Continue per POC to increase strength and independence unless otherwise d/c from facility. Shahida Metcalf, PLASTIC MANAGER
--- NOTE | 2017-03-20 14:50 | OTI REPORT ---
Thank you for the referral of Eduardo Foster. He was seen on 03/18/17 for an occupational therapy inpatient evaluation status post right hip fracture. SUBJECTIVE: The patient is a 76-year-old male who is being seen today secondary to a right hip fracture. The patient lives in [place]. He says that he was mowing the lawn at the [facility] when he pulled a cord and slipped backward. The patient was walking and standing in the ER and ended up breaking his femoral neck. Prior to admission the patient was independent with all ADLs and iADLs. He was able to complete showering, cooking, cleaning, laundry, and driving independently. The patient states he has a lot of friends; however, he does not have any family around. The patient lives in an apartment and he does have four stairs going into his apartment. The patient does have a shower chair that he can use and a higher toilet. The patient states he was not able to dress himself and that he was still kind of struggling with this. He was issued a campus administrator and a sock aide. The campus administrator was to dress the lower extremities and the sock aide was to don socks. PAST MEDICAL HISTORY: Past medical history can be found in the patient's medical record. OBJECTIVE FINDINGS: Ambulation: The patient was using crutches; however, he was going at a higher speed and not necessarily keeping the toe touch weight-bearing precautions on his lower extremity. The therapist had to cue him frequently to slow down and to put less weight on the leg. The patient was able to walk a lap around the nurse's station which is 150 feet. The patient then walked down to therapy with his crutches, reporting that he had no pain. ASSESSMENT: The patient would benefit from one more day of occupational therapy. He needs to slow down and be safer with his crutches and he needs to work on stairs and safety. Short-Term Goals: To be met by discharge from inpatient: Patient will be able to dress self independently at home with adaptive devices. Patient will be able to ambulate household distances with appropriate assistive device. Patient will be able to ascend and descend five stairs with appropriate assistive device. Long-Term Goals: To be met following discharge from inpatient: Patient will be able to return home independent and safe with all ADLs and iADLs TREATMENT PLAN: Patient will be seen B.I.D during the week and one time per day over the weekend as an inpatient to address the above goals and objectives. INITIAL TREATMENT: Treatment today consisted of the initial evaluation followed by the patient ambulating down to therapy. Downstairs in therapy we worked on educating the patient on safer ways of walking. We tried a standard walker as well as a wheeled walker. The patient did not like either of these items. We did thoroughly go through crutch safety. On the carpet the patient's left crutch was dragging on the carpet at times. We did lower the crutch from where they had it one notch and we worked on having the patient swing the crutches around vs. going straight forward. After instructions, the patient did better with the crutches and was safer. He also slowed down which made him safer. The patient was somewhat tired after this. KARMA
== END 2017-03-19 14:34 | disposition home or self-care (01) | DRG 482 ==
LOC: MED/SURG 09:30 → OPS 14:14 → MED/SURG 17:19
PROVIDERS: ADMIT Orthopaedic Surgery; ATTEND Orthopaedic Surgery

== ENCOUNTER 2018-10-21 12:25 | Inpatient (IN) ==
[2018-10-21] MEDS ORDERED: Sodium Chloride 0.9% 1,000 ML PRIMARY IV ONE (12:54)
[2018-10-21 13:29] LABS: BILIRUBIN,URINE SMALL (NEG); CLARITY,URINE CLOUDY (CLEAR); GLUCOSE, URINE (UA) NEGATIVE (NEG); OCCULT BLOOD,URINE LARGE (NEG); PH,URINE 5.5 (5.0-8.5); PROTEIN,URINE >300 mg/dl (NEG)
[2018-10-21 13:39] LABS: BACTERIA,URINE MANY; COLOR,URINE AMBER (Y); SQUAMOUS EPITHELIAL CELL,UR FEW; URINE SAMPLE TYPE CATH SPECIMEN; WBC,URINE 50-70
[2018-10-21 14:00] LABS: BASOPHILS # (AUTO) 0.02 10*3/UL; BASOPHILS % (AUTO) 0.2 % (0-1); EOSINOPHILS # (AUTO) 0.04 10*3/UL; EOSINOPHILS % (AUTO) 0.4 % (0-8); Hematocrit [HCT] 45.7 % (42.0-52.0); Hemoglobin [HGB] 15.8 g/dL (14.0-18.0); LYMPHOCYTES # (AUTO) 0.92 10*3/uL; MEAN CORPUSCULAR HEMOGLOBIN 31.8 PG (27-31); MEAN CORPUSCULAR HGB CONC 34.6 g/dL (33-37); MEAN PLATELET VOLUME 8.4 FL (7.4-12.2); MONOCYTES # (AUTO) 0.75 10*3/UL (0.3-0.8); NEUTROPHILS # (AUTO) 8.92 10*3/UL; NEUTROPHILS % (AUTO) 83.5 % (50-80); RED BLOOD COUNT 4.97 10^6/uL (4.70-6.10)
[2018-10-21] MEDS ORDERED: cefTRIAXone Inj 2 GM in Sodium Chloride 0.9% 100 ML IV ONE (14:01)
[2018-10-21 14:12] LABS: BLOOD UREA NITROGEN 22 mg/dL (7-22); BUN/CREATININE RATIO 24.44 (6-20); SERUM ALBUMIN 4.5 g/dL (3.5-4.8)
[2018-10-21 14:30] LABS: PLATELET MORPHOLOGY COMMENT NORMAL MORPHOLOGY (NORM); RBC MORPHOLOGY COMMENT NORMAL MORPHOLOGY (NORM); WBC MORPHOLOGY COMMENT NORMAL MORPHOLOGY (NORM)
[2018-10-21] MEDS: ONDANSETRON 4 MG/2 ML VIAL IVP ONE ×2 (15:31→15:32)
[2018-10-21] MEDS ORDERED: ONDANSETRON 4 MG/2 ML VIAL ONE (15:32)
--- NOTE | 2018-10-21 15:57 | PDOC ---
HPI - History of Present Illness Date of Service: 10/21/18 Time of Service: 16:20 Chief Complaint: Shakes, not feeling well, frequency the last 5 days History of Present Illness: This is an 78 years old male with medical history significant for history of seizure disorder on Dilantin who presented to the hospital with history of shakes, urinary frequency, decreased appetite this started 5 days ago. He said he is going often into the bathroom he went multiple times like nearly every 2 hours which is not normal for him, there is no dysuria, he is not peeing much it is a dribble according to him. No pain. Complaining from shivering. Not sure whether he had fever or not. He denied pain and no nausea or vomiting. Didn't take his medication today. Because of all these symptoms he came into the ER he was found to have urinary tract infection was given Rocephin and was admitted. Once he came into the floor he said maybe he is a little bit better compared to when he came in. Past Medical History Medical History: 1. History of seizure disorder on Dilantin. 2. History of bilateral inguinal hernia wear support for it Surgical History: 1. Open reduction internal fixation of right hip fracture 2016 Family History: Reviewed an Not Pertinent Past Social History: Does not smoke, does not drink, no drugs. No children. Lives by himself in [place]. Tobacco Use: Never Smoker In the Past 12 Months, Have Used or Abuse Any of the Following Substance: None Medication / Allergies Home Medications: Home Medications Medication Instructions Recorded Confirmed Type Phenytoin Sodium Extended 2 tab-cap PO BID #360 tab-cap 07/25/16 10/21/18 Rx Polyethylene Glycol 3350 [Miralax] 17 gm PO DAILY 10/21/18 10/21/18 History Allergies/Adverse Reactions: Allergies Allergy/AdvReac Type Severity Reaction Status Date / Time No Known Allergies Allergy Verified 10/21/18 16:03 Review of Systems - Review of Systems All Systems: Reviewed & No Additional Complaints Except as Stated Exam - Vitals Vital Signs: Vital Signs Temperature 98.3 F Temperature Source Temporal Artery Scan Pulse Rate [Pulse Oximeter] 90 Respiratory Rate 18 Blood Pressure [Left Arm] 157/100 Pulse Ox 96 Oxygen Delivery Method Room Air Height 5 ft 11 in Weight 175 lb - General Additional General Exam Details: Was having mild shivering - Head Head Exam: Normal Inspection - Eye Eye Exam: POSITIVE: Normal Appearance - ENT ENT Exam: POSITIVE: Normal Exam - Neck Neck Exam: Normal Inspection - Respiratory Respiratory Exam: POSITIVE: Clear to Auscultation - Bilaterally - Cardiovascular Cardiovascular Exam: POSITIVE: RRR - GI/Abdominal GI/Abdominal Exam: POSITIVE: Normal Bowel Sounds, Non Tender, Non Distended, Soft, No Organomegaly - Rectal Rectal Exam: POSITIVE: Deferred - External Exam: POSITIVE: Deferred Exam: POSITIVE: Deferred - Extremities Extremities Exam: POSITIVE: Normal Inspection - Back Back Exam: POSITIVE: Normal Inspection - Neurological Neurological Exam: POSITIVE: Alert, Oriented x 3, CN II-XII Intact, No Facial Droop, Speech Intact / Clear, Moves All Extremities Equally - Psychiatric Psychiatric Exam: POSITIVE: Normal Affect - Integumentary Integumentary Exam: POSITIVE: Normal Color Results - Labs CBC and BMP: 10/21/18 13:45 10/21/18 13:45 Assessment and Plan - Patient Problems (1) Urinary tract infection Current Visit: Yes Status: Acute Comment: He was given Rocephin will continue with Rocephin until we have culture result. will Put him on IV fluid also. Code(s): N39.0 - Urinary tract infection, site not specified (2) History of seizure disorder Current Visit: Yes Status: Acute Comment: Continue same medication. Code(s): Z86.69 - Personal history of other diseases of the nervous system and sense organs
[2018-10-21] MEDS ORDERED: ACETAMINOPHEN 325 MG TABLET PO PRN (16:14)
[2018-10-21] MEDS ORDERED: LIDOCAINE W/ SODIUM BICARB 0.5 ML SYR SUBD PRN (16:14)
[2018-10-21] MEDS ORDERED: ONDANSETRON 4 MG/2 ML VIAL IVP PRN (16:14)
[2018-10-21] MEDS ORDERED: CALCIUM CARBONATE 500 MG (TUMS) CHEWABLE TABLET PO PRN (16:14)
[2018-10-21] MEDS ORDERED: DOCUSATE 100 MG CAPSULE PO PRN (16:14)
[2018-10-21] MEDS: Lactated Ringers 1,000 ML PRIMARY IV SCH (17:15)
[2018-10-21] MEDS: PHENYTOIN PO SCH (20:40)
--- NOTE | 2018-10-21 21:11 | DI ---
CT ABDOMEN SCAN WITHOUT IV CONTRAST, 10/21/2018 4:28 PM : Clinical History: Urinary tract infection. Rigor. Previous Exam: None at this facility. IV Contrast: None administered. Oral Contrast: No oral contrast ordered. Rectal Contrast: No rectal contrast ordered. Lungs: No infiltrate or effusion. Liver: Normal size. Multiple low-density lesions in the right and left lobes of the liver that are in near water density range in size between 5 mm up to 40 x 45 x 60 mm then these are consistent with c ysts. Gallbladder: 2 large 25-30 mm diameter laminated gallstones without evidence of cholecystitis. The co mmon bile duct measures 5 mm. Adrenal Glands: Normal. Spleen: Normal. Pancreas: Atrophic but normal. Kidneys: Normal size, shape, position and contour. No hydronephrosis or hydroureter. There are nonobs tructing 2 mm diameter calculi in a lower pole right renal calyx and a mid zone left renal calyx. No ureteral calculi. No extravasation of urine is noted. There is no perinephric inflammatory/infiltrati ve change present. Lymph Nodes: Normal. Masses: None. Ascites: No ascites. Free Air: None. Spine: Normal lower thoracic and lumbar spine. Osteoporosis. READIN. Both kidneys have a normal appearance without evidence of perinephric fluid collections to indica te a perinephric abscess or inflammatory/infiltrative change. There is no hydronephrosis or hydrouret er. Each kidney has a small nonobstructing 2 mm calculus. No ureteral calculi are visualized. 2. Cholelithiasis without evidence of cholecystitis. Common bile duct measures 5 mm. 3. Multiple low-density lesions in the liver measuring between 5 mm for the smaller lesions, up to 4 0 x 45 x 60 mm in the left lobe. These are consistent with cysts. CT PELVIS SCAN WITHOUT IV CONTRAST, 10/21/2018 4:28 PM : Clinical History: See above. Previous Exam: None at this facility. IV Contrast: None. Masses: No masses. Ascites: None. Free Air: None. Lymph Nodes: No adenopathy. Appendix: Not visualized. Small Bowel: Normal small bowel, terminal ileum, and ileocecal valve. Colon: The cecum, terminal ileum, and ileocecal valve likely within a right inguinal hernia. The sigm oid colon lies in a left inguinal hernia. There is no obstruction. Bladder: Normal. Prostate: Marked prostatic hypertrophy. Hernias: Large, nonobstructing bilateral inguinal hernias. 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 Status post ORIF of a right hip fracture. READIN. Large bilateral inguinal hernias. The right side is larger and contains the cecum, ileocecal valv e, and terminal ileum. The appendix is not identified with certainty. The left inguinal hernia contai ns sigmoid colon. No obstructive bowel pattern is present. 2. Marked prostatic hypertrophy.
--- NOTE | 2018-10-21 23:40 | PDOC ---
General Adult HPI - General Chief Complaint: General Medical Stated Complaint: voided 42 in 24hours Date Seen by Provider: 10/21/18 Time Seen by Provider: 12:40 Source: POSITIVE: Patient Exam Limitations: POSITIVE: No limitations Nurse's Notes Reviewed & Considered: Yes - History of Present Illness Initial Comment: The patient is an 78-year-old male from [place]. He presents to the emergency room complaining of urinary frequency. He states that he has "Peed 42 times in the last 24 hours ". He states he is voiding small amounts. He denies any real dysuria. No hematuria. Patient is on phenytoin 200 mg twice daily, which she has been on for the past 25 years due to a seizure 25 years ago. He states he has had some associated nausea. No abdominal or flank pain. History of surgical correction for pyloric stenosis as a young child. He has a long- standing history of large bilateral inguinal hernias. Patient states that he has had "chills and shakes" since last night; he has not taken his temperature. Have you received a tetanus shot in the past 10 years?: Yes Body Location Affected: REPORTS: Genitalia (Urinary frequency and hesitancy as above) Timing: REPORTS: Constant Duration: <24 hours (Approximately 24 hours) Severity: Moderate Quality: REPORTS: Other (Patient denies any pain) Context: REPORTS: None Modifying Factors: improves with: Nothing Similar Symptoms Previously: No Recent Care Received: REPORTS: Denies Any Prior Injuries Related to Current Complaint?: No - Patient Home Medications Home Medications: Home Medications Phenytoin Sodium Extended 2 tab-cap PO BID #360 tab-cap 07/25/16 Polyethylene Glycol 3350 [Miralax] 17 gm PO DAILY 10/21/18 - Patient Allergies Allergies/Adverse Reactions: Allergies Allergy/AdvReac Type Severity Reaction Status Date / Time No Known Allergies Allergy Verified 10/21/18 20:46 Past Medical History - heen HEENT History: Cataracts Cardiovascular History: Denies History Respiratory History: Denies History Gastrointestinal History: Other (please comment) Additional Gastrointestinal History: Chronic constipation Genitourinary History: Denies History Endocrine History: Denies History Musculoskeletal History: Arthritis Prosthesis or Implant: No Neurological History: Seizures Blood Disorders: Denies History Psychiatric History: Denies History History of Sexually Transmitted Diseases: No Cancer History: Denies History In Past Year Been Physically Harmed or Verbally Threatened: No History of MDRO: No History of Other Communicable Diseases: No Tobacco Use: Never Smoker In the Past 12 Months, Have Used or Abuse Any Substance: None Significant Family History: Heart disease, Cancer Past Medical History Reviewed: Reviewed - No Changes ROS - Limitations ROS Limitations: No Limitations Constitution: REPORTS: Denies Symptoms Cardiovascular: REPORTS: Denies Cardiac Symptoms Respiratory: REPORTS: Denies Resp Symptoms Neurological: REPORTS: Denies Neuro Symptoms Gastrointestinal: REPORTS: Denies GI Symptoms Endocrine: REPORTS: Denies Symptoms Musculoskeletal: REPORTS: Denies MS Symptoms Genitourinary: REPORTS: Difficulty Urinating, Other (Urinary frequency with passage of only small amounts of urine when voiding) Eyes: REPORTS: Denies Symptoms ENT: REPORTS: Denies Symptoms Skin: REPORTS: Denies Skin Symptoms Lympathic: REPORTS: Denies Lympathic Symptoms Immunologic: POSITIVE: Denies Symptoms Psychiatric: POSITIVE: Denies Psych Symptoms General Adult Exam - General Appearance General Appearance: POSITIVE: Alert, Cooperative, No Acute Distress, No Evidence of Trauma - HEENT HEENT: POSITIVE: Head Inspection Nml, Eyes Inspection Nml, Ears Inspection Nml, Nose Inspection Nml, Oral/Dental Inspect. Nml, Pharynx Inspect. Nml, PERRL, EOMI - Pupils Pupil Size: 3 mm: Bilateral - Neck Neck: POSITIVE: Normal Inspection, Thyroid Normal - Respiratory Respiratory: POSITIVE: No Respiratory Distress, Breath Sounds Normal, Chest Non- Tender - Cardiovascular Cardiovascular: POSITIVE: Regular Rate & Rhythm, No Murmur, No Gallop, PMI Normal Peripheral Pulses: Radial (R): 2+, Radial (L): 2+ - Abdomen Abdomen: Soft: (All Quadrants), Normal Bowel Sounds: (All Quadrants), No Splenomegaly: (All Quadrants), No Hepatomegaly: (All Quadrants), No Guarding: (All Quadrants), No Rebound: (All Quadrants), No Palpable Pulse: (All Quadrants) Additional Abdominal Details: Abdominal examination shows bowel sounds to be present. Patient has very large bilateral inguinal hernias, which are nontender and reducible. There are bowel sounds in the inguinal hernias. He is circumcised and he has no testicular pain. Rectal examination shows the prostate to be nontender; the prostate is firm and enlarged. He does complain of some discomfort on palpation over the suprapubic area. - Rectal Rectal: POSITIVE: Non Tender, Normal Rectal Tone, Heme Negative Stool, Other (Large smooth and nontender prostate) - Back Back: POSITIVE: Normal Inspection. NEGATIVE: CVA Tenderness - Skin Skin: POSITIVE: Normal Color, Warm, Dry, No Rash - Extremities Extremity: Non-Tender: (All Extremities), Normal ROM: (All Extremities), Normal Inspection: (All Extremities) - Neurological / Psychological Neurological: POSITIVE: Affect Apporpriate, Oriented X3, communications technologist Normal As Tested, Motor Normal, Sensation Normal General Adult Progress - Results Reviewed by me Lab Results Reviewed by Me: Yes (urinalysis nitrate positive, 50-70 white blood cells per high-power field; ) Lab Results:: Laboratory Results 10/21/18 10/21/18 10/21/18 13:25 13:45 13:45 WBC 10.68 RBC 4.97 Hgb 15.8 Hct 45.7 MCV 92.0 H MCH 31.8 H MCHC 34.6 RDW Std Deviation 45.1 RDW Coeff of Jade 13.6 Plt Count 219 MPV 8.4 Immature Gran % (Auto) 0.3 Neut % (Auto) 83.5 H Lymph % (Auto) 8.6 L Isabela % (Auto) 7.0 Eos % (Auto) 0.4 Baso % (Auto) 0.2 Immature Gran # (Auto) 0.03 Neut # (Auto) 8.92 Lymph # (Auto) 0.92 Isabela # (Auto) 0.75 Eos # (Auto) 0.04 Baso # (Auto) 0.02 WBC Morphology Comment Normal morphology Plt Morphology Comment Normal morphology RBC Morph Comment Normal morphology Sodium Potassium Chloride Carbon Dioxide Anion Gap BUN Creatinine BUN/Creatinine Ratio Glucose Calculated Osmolality Lactic Acid Calcium Total Bilirubin AST ALT Alkaline Phosphatase C-Reactive Protein 19.6 H Total Protein Albumin Globulin Albumin/Globulin Ratio Prostate Specific Ag Ur Collection Type Cath specimen Urine Color Miriam A Urine Clarity Cloudy A Urine pH 5.5 Ur Specific [place] 1.025 Urine Protein >300 A Urine Glucose (UA) Negative Urine Ketones 80 Urine Occult Blood Large H Urine Nitrate Positive H Urine Bilirubin Small Urine Urobilinogen 2.0 Ur Leukocyte Esterase Small Urine RBC 4-8 A Urine WBC 50-70 Ur Squamous Epith Cells Few Ur Renal Epithelial Cell None Urine Crystals None Urine Bacteria Many H Urine Casts None Urine Mucus Many Urine Trichomonas None Urine Yeast None Ur Culture Indicated? Culture set 10/21/18 10/21/1810/21/19 13:45 13:45 13:57 WBC RBC Hgb Hct MCV MCH MCHC RDW Std Deviation RDW Coeff of Jade Plt Count MPV Immature Gran % (Auto) Neut % (Auto) Lymph % (Auto) Isabela % (Auto) Eos % (Auto) Baso % (Auto) Immature Gran # (Auto) Neut # (Auto) Lymph # (Auto) Isabela # (Auto) Eos # (Auto) Baso # (Auto) WBC Morphology Comment Plt Morphology Comment RBC Morph Comment Sodium 141 Potassium 4.6 Chloride 103 Carbon Dioxide 23 Anion Gap 15 BUN 22 Creatinine 0.9 BUN/Creatinine Ratio 24.44 H Glucose 113 H Calculated Osmolality 295.0 H Lactic Acid 1.6 Calcium 8.8 Total Bilirubin 0.9 AST 33 ALT 19 L Alkaline Phosphatase 105 C-Reactive Protein Total Protein 7.9 Albumin 4.5 Globulin 3.5 Albumin/Globulin Ratio 1.20 L Prostate Specific Ag 6.24 H Ur Collection Type Urine Color Urine Clarity Urine pH Ur Specific [place] Urine Protein Urine Glucose (UA) Urine Ketones Urine Occult Blood Urine Nitrate Urine Bilirubin Urine Urobilinogen Ur Leukocyte Esterase Urine RBC Urine WBC Ur Squamous Epith Cells Ur Renal Epithelial Cell Urine Crystals Urine Bacteria Urine Casts Urine Mucus Urine Trichomonas Urine Yeast Ur Culture Indicated? CBC and BMP: 10/21/18 13:45 10/21/18 13:45 - Patient's Progress Pain Medication Addressed: POSITIVE: Not Applicable School/Work Release Addressed: POSITIVE: Not Applicable Re-Examine Time: 15:00 Re-Examine Comment: Shortly after arrival, bladder scan was accomplished which showed 54 mL of urine in the bladder. Patient then voided 50 mL. Patient diagnosed with urinary tract infection; following blood and urine cultures to grams Rocephin IV was given. Case was discussed with hospitalist aboriginal home school liaison officer, Dr. Rodríguez, who has admitted the patient for further evaluation and treatment. Status: POSITIVE: Unchanged, Re-Examined Antibiotics Given: Yes (Rocephin, 2 g IV) - Consult Consult (If Yes, Name of Consulting MD & Time Called): Yes (Dr. Rodríguez, [id number]) Consulting MD will see pt:: POSITIVE: [facility] [place] Admit Counseled: POSITIVE: Patient, RE: Lab Results, RE: DX, RE: Need for F/U Patient Care Time - Estimated PCT Patient Care Time (In Minutes): 55 Vital Signs - VS Reviewed Vital Signs Reviewed: Yes Discharge Clinical Impression: Urinary tract infection Discharge Disposition: Admit to Inpatient Condition: Fair Date Decision to Admit to Inpatient: 10/21/18 Time Decision to Admit to Inpatient: 15:00
[2018-10-22] MEDS: Lactated Ringers 1,000 ML PRIMARY IV SCH ×3 (04:17→20:59)
[2018-10-22 04:45] LABS: BASOPHILS # (AUTO) 0.03 10*3/UL; BASOPHILS % (AUTO) 0.3 % (0-1); EOSINOPHILS # (AUTO) 0.09 10*3/UL; Hematocrit [HCT] 38.8 % (42.0-52.0); Hemoglobin [HGB] 13.6 g/dL (14.0-18.0); LYMPHOCYTES # (AUTO) 1.31 10*3/uL; MEAN CORPUSCULAR HEMOGLOBIN 32.2 PG (27-31); MEAN CORPUSCULAR HGB CONC 35.1 g/dL (33-37); MEAN CORPUSCULAR VOLUME 91.9 FL (80-90); MEAN PLATELET VOLUME 8.7 FL (7.4-12.2); MONOCYTES # (AUTO) 1.06 10*3/UL (0.3-0.8); NEUTROPHILS # (AUTO) 6.32 10*3/UL; NEUTROPHILS % (AUTO) 71.7 % (50-80); RED BLOOD COUNT 4.22 10^6/uL (4.70-6.10)
[2018-10-22 04:57] LABS: PLATELET MORPHOLOGY COMMENT NORMAL MORPHOLOGY (NORM); RBC MORPHOLOGY COMMENT NORMAL MORPHOLOGY (NORM); WBC MORPHOLOGY COMMENT NORMAL MORPHOLOGY (NORM)
[2018-10-22] MEDS: PHENYTOIN PO SCH ×2 (08:17→20:57)
[2018-10-22] MEDS: POLYETHYLENE GLYCOL 3350 17 GM POWDER PO SCH (08:17)
--- NOTE | 2018-10-22 12:40 | PDOC(PROG) ---
Interval History: Patient feels much better today. Denies chest pain nausea or vomiting most likely has BPH is not he is not interested in having a Ferraro. Objective : Data - Labs CBC and BMP: 10/22/18 04:07 10/21/18 13:45 Objective : Exam - General General Appearance: Cooperative - Respiratory Respiratory Exam: Clear to Auscultation - Bilaterally, Breathing Non Labored, Normal To Percussion, Normal to Percussion and Palpation - Cardiovascular Cardiovascular Exam: RRR, No Murmur, No Clicks, No Gallops, No Rubs, PMI Non- Displaced - GI/Abdominal GI/Abdominal Exam: Normal Bowel Sounds, Non Tender, Non Distended, Soft, No Masses, No Hepatomegaly, No Splenomegaly, No Organomegaly - Extremities Extremities Exam: No Clubbing Present, No Edema Present, No Cyanosis Present Assessment and Plan - Patient Problems (1) Urinary tract infection Current Visit: Yes Status: Acute Comment: Continue antibiotics cultures pending refuses Ferraro low urine output we'll check ultrasound of kidneys Code(s): N39.0 - Urinary tract infection, site not specified (2) History of seizure disorder Current Visit: Yes Status: Acute Comment: Continue home medication Code(s): Z86.69 - Personal history of other diseases of the nervous system and sense organs
[2018-10-22] MEDS ORDERED: cefTRIAXone Inj 2 GM in Sodium Chloride 0.9% 100 ML IV SCH (14:30)
--- NOTE | 2018-10-22 15:40 | DI ---
US Retroperitoneum,10/22/2018 12:40 PM: Clinical History: Lower urinary output. Previous Exam: None at this facility. Findings: Multiple transabdominal grayscale and color Doppler sonographic images are obtained through the retro peritoneum. The prostate is prominent causing a impression on the bladder neck. The prostate in its entirety measures 3.9 x 5.8 x 5.1 cm. The urinary bladder is unremarkable. The urinary bladder is normal. The left kidney measures 12.3 cm in length without hydronephrosis nor nephrolithiasis. The right kidney measures 11.1 cm in length without hydronephrosis nor nephrolithiasis. There is a complex cystic mass within the right lobe of the liver measuring 4.3 x 5.8 x 5.8 cm. Impression: 1. 4.2 x 5.8 x 5.8 cm complex cyst within the right lobe of the liver. 2. Mild prostatic hypertrophy.
[2018-10-23] MEDS: Lactated Ringers 1,000 ML PRIMARY IV SCH ×2 (07:28→10:24)
[2018-10-23 07:44] LABS: BASOPHILS # (AUTO) 0.03 10*3/UL; BASOPHILS % (AUTO) 0.4 % (0-1); EOSINOPHILS # (AUTO) 0.22 10*3/UL; EOSINOPHILS % (AUTO) 3.1 % (0-8); Hematocrit [HCT] 44.6 % (42.0-52.0); Hemoglobin [HGB] 15.6 g/dL (14.0-18.0); LYMPHOCYTES # (AUTO) 1.17 10*3/uL; MEAN CORPUSCULAR HEMOGLOBIN 31.8 PG (27-31); MEAN CORPUSCULAR VOLUME 90.8 FL (80-90); MEAN PLATELET VOLUME 8.6 FL (7.4-12.2); MONOCYTES # (AUTO) 0.86 10*3/UL (0.3-0.8); MONOCYTES % (AUTO) 12.2 % (5-15); NEUTROPHILS # (AUTO) 4.76 10*3/UL; NEUTROPHILS % (AUTO) 67.4 % (50-80); RED BLOOD COUNT 4.91 10^6/uL (4.70-6.10)
[2018-10-23 07:53] LABS: PLATELET MORPHOLOGY COMMENT NORMAL MORPHOLOGY (NORM); RBC MORPHOLOGY COMMENT NORMAL MORPHOLOGY (NORM); WBC MORPHOLOGY COMMENT NORMAL MORPHOLOGY (NORM)
[2018-10-23 08:40] LABS: BLOOD UREA NITROGEN 15 mg/dL (7-22); BUN/CREATININE RATIO 21.42 (6-20); SERUM ALBUMIN 4.4 g/dL (3.5-4.8)
[2018-10-23] MEDS: POLYETHYLENE GLYCOL 3350 17 GM POWDER PO SCH (10:23)
[2018-10-23] MEDS: PHENYTOIN PO SCH (10:24)
--- NOTE | 2018-10-23 10:50 | DCSUMMARY ---
Hospitalization Summary Hospital Course: Final Discharge Diagnosis: Current Visit Problems Problem Status Onset Code Urinary tract infection Acute N39.0 History of seizure disorder Acute Z86.69 Diagnostic Data, Laboratory Data, and Procedures of Signifigance: Laboratory Results 10/23/18 10/23/18 07:29 07:29 WBC 7.07 RBC 4.91 Hgb 15.6 Hct 44.6 MCV 90.8 H MCH 31.8 H MCHC 35.0 RDW Std Deviation 45.0 RDW Coeff of Jade 13.5 Plt Count 249 MPV 8.6 Immature Gran % (Auto) 0.4 Neut % (Auto) 67.4 Lymph % (Auto) 16.5 Crawford % (Auto) 12.2 Eos % (Auto) 3.1 Baso % (Auto) 0.4 Immature Gran # (Auto) 0.03 Neut # (Auto) 4.76 Lymph # (Auto) 1.17 Crawford # (Auto) 0.86 H Eos # (Auto) 0.22 Baso # (Auto) 0.03 WBC Morphology Comment Normal morphology Plt Morphology Comment Normal morphology RBC Morph Comment Normal morphology Sodium 142 Potassium 4.1 Chloride 102 Carbon Dioxide 24 Anion Gap 16 BUN 15 Creatinine 0.7 BUN/Creatinine Ratio 21.42 H Glucose 104 Calculated Osmolality 294.0 H Calcium 8.9 Total Bilirubin 0.5 AST 34 ALT 27 Alkaline Phosphatase 113 Total Protein 7.7 Albumin 4.4 Globulin 3.3 Albumin/Globulin Ratio 1.30 History and Physical pertinent to Admission: Past Medical History Medical History: 1. History of seizure disorder on Dilantin. 2. History of bilateral inguinal hernia wear support for it Surgical History: 1. Open reduction internal fixation of right hip fracture 2016 Family History: Reviewed an Not Pertinent Past Social History: Does not smoke, does not drink, no drugs. No children. Lives by himself in [place]. Tobacco Use: Never Smoker Course of Hospitalization: This very nice 78-year-old gentleman with history of seizure disorder for 20 years on Dilantin presented to the hospital with urinary frequency decrease appetite for 5 days also has a history of BPH he was found to have a urinary tract infection was treated with ceftriaxone patient improved throughout his hospital stays his appetite is back to normal and he feels his normal self he does not want any more IVs and will like to be discharged home. He has refused a Ferraro while in the hospital. His labs show no white count no fever. He does have bilateral internal hernias for 13 years he said he will see a urologist in [place] after he talks to his primary care physician and Delf[place] he also has a 5 cm hepatic cyst I offered referral to gastroenterology and surgery he said he will also talk to his primary care physician and do his own follow-up. I did give him Augmentin by mouth twice a day for 5 more days. I strongly encouraged him to go see a urologist for his BPH and bilateral inguinal hernias On the date of discharge, the patient was examined: Gen.: [No acute distress, alert, nontoxic] Heart: [Regular rate and rhythm, no murmurs, clicks, gallops, or rubs] Lungs: [Clear to auscultation bilaterally, breathing is nonlabored] Abdomen/GI: [Normal tones on auscultation, soft, nontender, nondistended] Musculoskeletal/extremities: [No clubbing, cyanosis, or edema] Vitals reviewed and are listed below Vital Signs (24 hrs) 10/22/18 12:39 10/22/18 16:36 10/22/18 20:27 Temperature 97.7 F 98.7 F 97.6 F Pulse Rate [Pulse Oximeter] 79 64 65 Respiratory Rate 18 20 1 L Blood Pressure [Left Arm] 102/59 117/65 126/65 Pulse Ox 97 97 94 10/23/18 00:19 10/23/18 04:54 10/23/18 05:00 Temperature 97.5 F 98.0 F Pulse Rate [Pulse Oximeter] 95 64 Respiratory Rate 18 18 Blood Pressure [Left Arm] 138/78 143/77 Pulse Ox 92 99 97 10/23/18 07:28 Temperature 97.6 F Pulse Rate [Pulse Oximeter] 74 Respiratory Rate 18 Blood Pressure [Left Arm] 141/71 Pulse Ox 95 Assessment and Plan: 1. As per discharge assessments above 2. Disposition: home 3. Condition on discharge, stable and improved. 4. Diet: regular diet 5. Activities: resume normal activities 6. Follow-Up: 1. [PCP] 2. 7. Medications at the Time of Discharge: Home Medications Medication Instructions Recorded Confirmed Phenytoin Sodium Extended 2 tab-cap PO BID #360 tab-cap 07/25/16 10/21/18 Polyethylene Glycol 3350 [Miralax] 17 gm PO DAILY 10/21/18 10/21/18 Amoxicill/Clav 875/125mg 1 ea PO BID #10 tab 10/23/18 [Augmentin 875/125mg] 8. Time, care, counseling and coordination of care for this discharge is greater than 30 minutes. Exam - Vitals Vital Signs: Vital Signs Temperature 97.6 F Temperature Source Temporal Artery Scan Pulse Rate [Pulse Oximeter] 74 Respiratory Rate 18 Blood Pressure [Left Arm] 141/71 Pulse Ox 95 Oxygen Flow Rate ra Oxygen Delivery Method Room Air Height 5 ft 8 in Weight 162 lb 3.2 oz Patient Problems - Patient Problem List (1) Urinary tract infection Current Visit: Yes Status: Acute Code(s): N39.0 - Urinary tract infection, site not specified Category: Medical (2) History of seizure disorder Current Visit: Yes Status: Acute Code(s): Z86.69 - Personal history of other diseases of the nervous system and sense organs Category: Medical
[2018-10-23 11:19] VITALS: BP 112/69; RESP 16; TEMP 97.8; O2SAT 97
== END 2018-10-23 13:38 | disposition home or self-care (01) | DRG 690 ==
LOC: ER 12:25 → MED/SURG 15:51
PROVIDERS: ADMIT Internal Medicine; ATTEND Internal Medicine